=== PATIENT | male | born 1990 | race Caucasian/White ===

== ENCOUNTER 2017-12-04 19:15 | Emergency (ER) | payer OTHER ==
[~2017-12-04] VITALS: Ht 175.2 cm; Wt 99.8 kg
[~2017-12-04 19:15] MED LIST: CLARITIN-D 24 H1 T24 PO; FLEXERIL5 MG PO; MOTRIN800 MG PO; TESSALON PERLE200 MG PO; ULTRAM50 MG PO; ZITHROMAX Z PA250 MG PO
[2017-12-04] MEDS ORDERED: NAPROSYN500 MG PO (20:34)
[2017-12-04] MEDS ORDERED: CLINDAMYCIN150 MG PO (20:34)
== END 2017-12-04 20:40 | disposition home or self-care (01) ==
LOC: ED 19:15
DX: K04.01 Reversible pulpitis (principal); F17.200 Nicotine dependence, unspecified, uncomplicated; Z79.899 Other long term (current) drug therapy